=== PATIENT | female | born 1945 | race Caucasian/White ===

== ENCOUNTER → 2017-01-28 | Outpatient (CLI) | payer OTHER | LOC: CIMAGING 09:10 | PROVIDERS: ATTEND Internal Medicine | DX: Z12.31 Encounter for screening mammogram for malignant neoplasm of breast (principal) | CPT/HCPCS: G0202 ==

== ENCOUNTER → 2017-02-03 | Outpatient (CLI) | payer OTHER | LOC: CIMAGING 12:44 | PROVIDERS: ATTEND Internal Medicine | DX: Z12.39 Encounter for other screening for malignant neoplasm of breast (principal); R92.8 Other abnormal and inconclusive findings on diagnostic imaging of breast | CPT/HCPCS: 76641; G0204; G0206 ==

== ENCOUNTER → 2017-03-14 | Outpatient (CLI) | payer OTHER | LOC: BRMIMAGING 09:44 | PROVIDERS: ATTEND Internal Medicine Endocrinology, Diabetes & Metabolism | DX: E04.2 Nontoxic multinodular goiter (principal) ==

== ENCOUNTER → 2017-07-18 | Outpatient (CLI) | payer OTHER | LOC: CIMAGING 13:08 | PROVIDERS: ATTEND Internal Medicine | DX: R92.8 Other abnormal and inconclusive findings on diagnostic imaging of breast (principal) ==

== ENCOUNTER → 2018-01-19 | Outpatient (CLI) | payer OTHER ==
[~2018-01-19] MED LIST: GADOBUTROL 10 ML VIAL IVP ONE
== END ==
LOC: FIMAGING 06:33
DX: D33.3 Benign neoplasm of cranial nerves (principal); D35.2 Benign neoplasm of pituitary gland
CPT/HCPCS: 70553; A9585; 82565-PO

== ENCOUNTER → 2018-01-30 | Outpatient (CLI) | payer OTHER | LOC: CIMAGING 07:20 | PROVIDERS: ATTEND Internal Medicine | DX: Z12.31 Encounter for screening mammogram for malignant neoplasm of breast (principal) ==

== ENCOUNTER → 2018-02-24 | Outpatient (CLI) | payer OTHER | LOC: FIMAGING 10:17 | PROVIDERS: ATTEND Internal Medicine Endocrinology, Diabetes & Metabolism | DX: Z13.820 Encounter for screening for osteoporosis (principal); M85.89 Other specified disorders of bone density and structure, multiple sites; E04.2 Nontoxic multinodular goiter ==

== ENCOUNTER 2018-04-03 13:36 | Emergency (ER) | payer OTHER ==
[2018-04-03] MEDS ORDERED: CARBAMIDE PEROXIDE 15 ML OTIC.BTL LEFTEAR ONE (14:17)
--- NOTE | 2018-04-03 14:41 | EDPHY ---
H & P Time Seen by Provider: 04/03/18 13:53 HPI/ROS: This patient sustained a head injury at home last night. She explains that she was seated at her office desk in stood up briefly miss judging location of her wheelchair other rolled back slightly she missed the chair and tried to catch herself by grabbing the open drawer. The drawer fell out and she pitched backward striking her right parietal head against the wood floor. She did not lose of consciousness but felt dazed for approximately 20 min thereafter. She took 2 Tylenol p.m. Last night and slept without difficulty. She weak today without headache but notes some difficulty concentrating and feels slightly unsteady on her feet today. She explains that she feels slightly wobbling has to concentrate to walk without unsteadiness. After reviewing her symptoms on the Internet she decided to come the emergency department for evaluation. ROS: Constitutional: She felt well prior to her mechanical fall HEENT: No facial injuries from the incident. No recent URI symptoms or other complaints Eyes: No vision changes since the incident Neuro: She has difficulty concentrating but she denies any gilma confusion or difficulty with memory. No amnesia regarding the event or retrograde amnesia. No focal numbness tingling or other complaints Pulmonary: No shortness of breath or cough Cardiovascular: No lightheadedness GI: No nausea vomiting Integumentary: No lacerations abrasions Musculoskeletal: No midline neck or back pain since the fall. No extremity injuries. 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 Smoking Status: Never smoked Physical Exam: Physical exam: Vital signs are normal General: Patient is in no acute distress. HEENT: Is no external evidence of trauma on exam. Nose atraumatic. Ears: Right ear external canals clear TM without hematoma. Left external canal is notable for cerumen impaction. Oropharynx: No dental trauma or malocclusion. No intraoral lacerations. Eyes: Pupils are equal and reactive to light. Extraocular motions are intact. Optic fundi: Clear with no papilledema or hemorrhage. Neck: Trachea is midline with no stridor. The patient has no midline neck tenderness and retains a full range of motion without increase in pain. Lungs: Clear to auscultation bilaterally Cardiac: Regular rate and rhythm no murmur gallop or rub. Chest: Nontender. Abdomen: Soft nontender no organomegaly Back: Nontender Extremities: Atraumatic Neuro: GCS of 15. Cranial nerves II through XII intact. 3 out of 3 five- minute memory is intact. Cerebellar exam is normal as judged by symmetric rapid hand movements bilaterally. No pronator drift. No sensory or motor deficits are appreciated. Initial differential diagnosis: Minor head injury, concussion without LOC, cerumen impaction, posttraumatic vertigo, doubt cerebral contusion or more significant head injury Constitutional: Initial Vital Signs Heart Rate 58 L 04/03/18 13:46 Respiratory Rate 14 04/03/18 13:46 Blood Pressure 152/73 H 04/03/18 13:46 O2 Sat (%) 96 04/03/18 13:46 O2 Delivery Mode Room Air Allergies/Adverse Reactions: No Known Allergies Allergy (Verified 04/03/18 13:45) Home Medications: Medication Instructions Recorded Prolia 09/20/15 MDM/Departure - MDM Medications Given: Discontinued Medications Carbamide Peroxide (Debrox) 5 drop LEFTEAR EDNOW ONE Stop: 04/03/18 14:18 Last Admin: 04/03/18 14:28 Dose: 5 drops ED Course/Re-evaluation: Debrox to left ear followed by irrigation with removing of cerumen and repeat ear exam demonstrating clear external canal and tympanic membrane Discussion: Patient with findings consistent with mild concussion without LOC without red flag findings. She maintains her to 3 5 min memory, no and retrograde amnesia or other concerning findings. I advised against neuro imaging at this time explained the rationale in some detail her. Patient voices understanding and has clear mentation at this time with capacity for shared decision making. She understands the need to rest and avoid activities that put her at risk for recurrent head injury until 7 days after resolution of her current mild symptoms. She also understands need to return emergency department should she develop any worsening or additional symptoms - Depart Disposition: Home, Routine, Self-Care Clinical Impression: Concussion, Impacted cerumen of left ear Condition: Good Instructions: Concussion (ED) Additional Instructions: Diagnoses: 1. Concussion without loss of consciousness 2. Cerumen impaction left ear-resolved with irrigation Plan: Tylenol for headaches if needed Light activity until you feel improved. Avoid activities but she risk for any recurrent head injury until 7 days after resolution of your symptoms. Return emergency department for any significant worsening of symptoms or additional symptoms such as vomiting more than once, confusion or headache unrelieved by Tylenol despite treatment Referrals: Zofia Duran MD [Primary Care Provider] - As per Instructions
[2018-04-03 16:11] VITALS: BP 148/76
== END 2018-04-03 15:37 | disposition home or self-care (01) ==
LOC: CED 13:36
PROC: 3E1B78Z Irrigation of Ear using Irrigating Substance, Via Natural or Artificial Opening (ICD-10-PCS; principal; 2018-04-03)
DX: S06.0X0A Concussion without loss of consciousness, initial encounter (principal); H61.22 Impacted cerumen, left ear; R40.2412 Glasgow coma scale score 13-15, at arrival to emergency department; W01.198A Fall on same level from slipping, tripping and stumbling with subsequent striking against other object, initial encounter; Y92.019 Unspecified place in single-family (private) house as the place of occurrence of the external cause

== ENCOUNTER → 2018-05-29 | Outpatient (CLI) | payer OTHER ==
[~2018-05-29] MED LIST changes: -GADOBUTROL 10 ML VIAL IVP ONE; +LIDOCAINE 1% 300 MG/30 ML SDV ONE
== END ==
LOC: FIMAGING 12:16
PROVIDERS: ATTEND Internal Medicine Endocrinology, Diabetes & Metabolism
DX: E04.2 Nontoxic multinodular goiter (principal)

== ENCOUNTER → 2018-06-02 | Outpatient (CLI) | payer OTHER | LOC: FIMAGING 11:17 | PROVIDERS: ATTEND Internal Medicine | DX: R91.8 Other nonspecific abnormal finding of lung field (principal); R05 Cough; R53.83 Other fatigue; E04.2 Nontoxic multinodular goiter ==